=== PATIENT | female | born 1980 | race Caucasian/White ===

== ENCOUNTER 2020-02-22 13:57 | Emergency (ER) | payer OTHER, SELFPAY ==
[2020-02-22 14:12] VITALS: BP 131/92; PULSE 92; RESP 16; TEMP 36.8; O2SAT 98
--- NOTE | 2020-02-22 14:34 | ED.DENTAL ---
HPI - Dental/Oral General Chief complaint: Dental/Oral Stated complaint: tooth pain Time Seen by Provider: 02/22/20 14:34 Source: patient Mode of arrival: ambulatory Limitations: no limitations History of Present Illness HPI Narrative: Lea Hsu is a 39 yo female with a PMH of depression, HTN, interstitial [facility]stitis [facility]. Has had dysuria for weeks, tooth maria ferannda last few days but worsening since yesterday. Has a dental appt on 03/14. Related Data Home Medications Medication Instructions Recorded Confirmed duloxetine 60 mg PO BID 02/22/20 02/22/20 Allergies Allergy/AdvReac Type Severity Reaction Status Date / Time No Known Allergies Allergy Verified 01/25/17 12:04 Review of Systems Review of Systems: Narrative: CONSTITUTIONAL: Denies fever, chills, sweats. EYES: Denies visual changes, redness, discharge. ENT: Denies rhinorrhea, congestion, sore throat, otalgia.Tooth pain tooth 5, 9 CARDIOVASCULAR: Denies chest pain, palpitations, edema. RESPIRATORY: Denies dyspnea, wheezing, cough GASTROINTESTINAL: Denies abdominal pain, nausea, vomiting, diarrhea. GENITOURINARY:has dysuria, hematuria, abnormal discharge SKIN: Denies rash or itching. NEUROLOGIC: Denies numbness, or focal weakness. PSYCHIATRIC: Denies anxiety or depression. PMFSH Past Medical History Medical History Depression Hypertension Interstitial cystitis Pain, dental Family History Family History Other Diabetes mellitus Hypertension Social History Social History Smoking packs per day: 0.5 Smoking cigarettes per day: 10.0 Smoking status: Current every day smoker Tobacco type: cigarettes Alcohol intake: current Comments At time of signature, I agree with nursing past medical, surgical, social and family history. There is no relevant family history pertinent to the presenting complaint. Exam Narrative: Exam Narrative: General: well nourished, well-developed patient, in moderate distress. EYES: Sclera clear/white. Vision is grossly intact. EARS: External ears normal, Hearing grossly intact. NOSE: External nose normal without nasal discharge, nares without redness, no rhinorrhea. THROAT: Mucous membranes moist, dentition poor with pain in teeth 6 and 9- fractured teeth NECK: Neck supple, non-tender CARDIOVASCULAR: Regular rate and rhythm without murmurs, gallops, or rubs. RESPIRATORY: Clear to auscultation. Breath sounds equal bilaterally. No wheezes, rales, or rhonchi. GASTROINTESTINAL: Abdomen soft, SKIN: warm, intact with no suspicious lesions or rash, good texture and turgor. NEURO: awake, alert, and oriented to person, place and time. There were no obvious focal neurologic abnormalities. Steady gait EXTREMITIES: Normal range of motion. BACK: Nontender without deformity Course Course Emergency Course: Comes to express care with c/o dental pain and dusyria UA dip showed no leukocytes/2+ blood. Started on penicillin for both dysuria and for her dental fractures; she is on Cymbalta she was also given [place] for pain Vital Signs Vital signs: Vital Signs Temperature 98.3 F 02/22/20 14:12 Pulse Rate 92 02/22/20 14:12 Respiratory Rate 16 02/22/20 14:12 Blood Pressure 131/92 H 02/22/20 14:12 Pulse Oximetry 98 02/22/20 14:12 Temperature 98.3 F 02/22/20 14:12 Pulse Rate 92 02/22/20 14:12 Respiratory Rate 16 02/22/20 14:12 Blood Pressure 131/92 H 02/22/20 14:12 Pulse Oximetry 98 02/22/20 14:12 MDM - Dental/Oral Differential Diagnosis Differential diagnosis: Likely gingival abscess, dental caries, dental abscess and other (Dysuria) Lab Data Labs: Urine Glucose Negative Reference Range: Negative
== END 2020-02-22 14:55 | disposition home or self-care (01) ==
PROVIDERS: Emergency Provider Nurse Practitioner; PCP Internal Medicine
DX: K04.7 Periapical abscess without sinus (principal); R30.0 Dysuria; F17.210 Nicotine dependence, cigarettes, uncomplicated; I10 Essential (primary) hypertension
CPT/HCPCS: 81003; 99203; G0463